=== PATIENT | female | born 1955 | race Caucasian/White ===

== ENCOUNTER 2021-04-06 20:54 | Emergency (ER) | payer MEDICARE, SELFPAY ==
[2021-04-06 21:33] VITALS: BP 192/102; PULSE 65; RESP 16; TEMP 36.9; O2SAT 98; BMI 21.6
[2021-04-06 21:53] LABS: MANUAL DIFF FLAG NO
[2021-04-06 21:57] LABS: Basophils Percent Auto 0.6 % (0-2); Eosinophils Absolute Auto 0.3 X10*3/uL (0.0-0.4); Eosinophils Percent Auto 6.3 % (0-4); Hematocrit 39.6 % (37.0-47.0); Hemoglobin 13.6 g/dl (12.0-16.0); Imm Gran Abs Auto 0.01 X10*3/uL (0.00-0.03); Imm Gran Pct Auto 0.2 % (0.0-0.4); Lymphocytes Absolute Auto 1.6 X10*3/uL (1.2-4.9); Lymphocytes Percent Auto 34.8 % (20-40); Mean Corpuscular HGB Conc 34.3 g/dl (31.0-35.0); Mean Corpuscular Hemoglobin 33.1 pg (27.0-33.0); Mean Corpuscular Volume 96.4 fL (80.0-98.0); Mean Platelet Volume 10.5 fL (9.4-12.3); Monocytes Absolute Auto 0.5 X10*3/uL (0.1-1.2); Monocytes Percent Auto 11.3 % (2-11); Neutrophils Absolute Auto 2.2 x10*3/uL (2.0-8.3); Neutrophils Percent Auto 46.8 % (45-73); Platelet Count 235 X10*3/uL (160-400); Red Blood Count 4.11 X10*6/uL (4.20-5.50); White Blood Count 4.6 X10*3/uL (4.8-10.8)
[2021-04-06 22:09] LABS: Anion Gap 14 (12-20); Blood Urea Nitrogen 16 mg/dL (9-16); Calcium 9.2 mg/dL (8.4-10.2); Carbon Dioxide 26 mmol/L (22-29); Chloride 105 mmol/L (96-108); Creatinine Clr Calc Pharmacy 62.8; Estimated Glomerular Filt Rate > 60; Glucose Random 104 mg/dL (60-115); Potassium 3.9 mmol/L (3.3-5.1); Sodium 141 mmol/L (135-145)
[2021-04-06 22:17] LABS: Troponin-I High Sensitivity < 3.5 ng/L (<3.5-17.0)
--- NOTE | 2021-04-07 00:45 | ED_ITS ---
HPI - General Adult General Chief complaint: General Medical Stated complaint: High blood pressure/Dizziness Time Seen by Provider: 04/07/21 00:25 Source: patient Mode of arrival: ambulatory Limitations: no limitations History of Present Illness HPI narrative: 65-year-old female who presents emergency department for evaluation of elevated blood pressure. The patient states that approximately 6 months ago she was seen by her PCP and had some slightly elevated systolic readings in the office. The PCP suggested that the patient start a blood pressure medication however the patient wanted to monitor her blood pressure at home. she states that she was checking her blood pressure once a week and her systolic readings were in the 130-140 range. She states that over the past 1-2 days she has been taking her blood pressure in her readings have been significantly higher. the patient states that her blood pressure readings were 160/120, 170/121 and 180/120. She states at this evening she did have a head ache and felt dizzy, she discuss this with her son who is an EMT/ voluntary fire control assistant and he advised her to go to the emergency department for evaluation. At the time of my evaluation, the patient has no complaints. She states that she exercises daily, she does use salt in her diet. She denied fever, chills, chest pain, shortness of breath, nausea, vomiting, weakness, Frequency , urgency or dysuria Related Data Previous Rx's Medication Instructions Recorded lisinopril 10 mg tablet 10 mg PO DAILY 30 Days #30 tab 04/07/21 Allergies Allergy/AdvReac Type Severity Reaction Status Date / Time No Known Allergies Allergy Verified 04/07/21 00:44 Review of Systems Review of Systems: Yes all other systems are reviewed and are negative [facility] Past Medical History [facility] Narrative: past medical history: None. Past surgical history: None. Social history: The patient drinks 2 glasses of wine per day, she denies tobacco use. She denies alcohol use. Medical History (Updated 04/07/21 @ 00:54 by Carlos Mitchell MD) Depression Hypothyroidism Osteoporosis Social History Social History Advance Directives: No Physical Exam Vital Signs: Vital Signs: Last Vital Signs Temp 98.5 F 04/06/21 21:33 Pulse 65 04/06/21 21:33 Resp 16 04/06/21 21:33 BP 192/102 H 04/06/21 21:33 Pulse Ox 98 04/06/21 21:33 BMI result Body Mass Index 21.6 Const: General: cooperative and no acute distress Orientation/consciousness: oriented to person and oriented to place Limitations: no limitations HENMT: Head: Yes normal to inspection, Yes normocephalic and Yes atraumatic Ears: external ears normal General nose exam: Normal external nose present Face and sinus: Yes normal facial exam Mouth: Normal oral and palatal mucosa present Throat: Yes posterior oropharynx normal Eyes: General: appearance normal, both eyes and all related structures Pupils: Equal, round and reactive pupils present Neck: Neck: Yes normal visual inspection, Yes no lymphadenopathy, Yes trachea midline and Yes supple Chest: Chest palpation & inspection: normal inspection of the chest and normal palpation of entire chest wall Resp: Effort & Inspection: normal respiratory effort and able to speak in complete sentences Auscultation: clear to auscultation bilaterally Cardio: Rate: regular rate Rhythm: regular rhythm Heart sounds: S1 normal heart sound present, S2 normal heart sound present and no murmurs GI: Inspection: Yes normal to inspection Palpation (GI): Soft to palpation, nontender and no guarding Auscultation: normal bowel sounds : General: Yes no CVA tenderness Back/Spine/Pelvis: Back: no CVA tenderness Skin: General skin exam: no rashes or lesions noted Neuro: General: oriented to person and oriented to place Cranial nerves: Yes CN's II-XII intact bilaterally and Yes Equal, round and reactive pupils present Cognition (Neuro): normal cognition Motor exam (neuro): 5/5 motor strength present throughout Extrem: General: Yes normal to inspection Psych: Appearance: grossly normal Speech and movement: Normal speech and movement present Affect: normal affect Attitude: cooperative Thought process: Normal thought process present Thought content: Normal thought content present Course Course Course Narrative: 65-year-old female who presents emergency department for evaluation elevated blood pressures over the last 1-2 days. Prior to coming to the emergency department she did have headache and dizziness with an elevated blood pressure of 180/120. Patient's headache and dizziness since resolved. Her initial vital signs did reveal an elevated blood pressure of 192/102. Patient's physical examination was unremarkable. Laboratory evaluation revealed a normal CBC and a normal comprehensive metabolic panel. She had a undetectable high sensitivity troponin I. I did discuss the management of hypertension with the patient. At this time I do think that the patient would benefit from being started on an antihypertensive medication and the patient agrees. Patient was started on lisinopril 10 mg once a day. She was advised to check her blood pressure on Friday, Friday and Friday mornings for the next 2-3 weeks. She is to make a follow-up appointment with her PCP for re-evaluation and to return to emergency department if her symptoms get worse or she develops any new symptoms that are concerning to her. Medical Decision Making Lab Data Result diagrams: 04/06/21 21:48 04/06/21 21:48 Labs: Lab Results 04/06/21 04/06/21 04/06/21 Range/Units 21:48 21:48 21:48 WBC 4.6 L (4.8-10.8) X10*3/uL RBC 4.11 L (4.20-5.50) X10*6/uL Hgb 13.6 (12.0-16.0) g/dl Hct 39.6 (37.0-47.0) % MCV 96.4 (80.0-98.0) fL MCH 33.1 H (27.0-33.0) pg MCHC 34.3 (31.0-35.0) g/dl RDW 12.0 (11.0-16.0) % Plt Count 235 (160-400) X10*3/uL MPV 10.5 (9.4-12.3) fL Immature Gran % (Auto) 0.2 (0.0-0.4) % Neut % (Auto) 46.8 (45-73) % Lymph % (Auto) 34.8 (20-40) % [place] % (Auto) 11.3 H (2-11) % Eos % (Auto) 6.3 H (0-4) % Baso % (Auto) 0.6 (0-2) % Lymph # (Auto) 1.6 (1.2-4.9) X10*3/uL [place] # (Auto) 0.5 (0.1-1.2) X10*3/uL Eos # (Auto) 0.3 (0.0-0.4) X10*3/uL Baso # (Auto) 0.0 (0.0-0.2) X10*3/uL Abs Immat Gran (auto) 0.01 (0.00-0.03) X10*3/uL Absolute Neuts (auto) 2.2 (2.0-8.3) x10*3/uL Absolute Nucleated RBC 0.000 (0.0-0.012) X10*3/uL Nucleated RBC % (auto) 0.0 (0.0-0.2) /100WBC Sodium 141 (135-145) mmol/L Potassium 3.9 (3.3-5.1) mmol/L Chloride 105 (96-108) mmol/L Carbon Dioxide 26 (22-29) mmol/L Anion Gap 14 (12-20) BUN 16 (9-16) mg/dL Creatinine 0.77 (0.5-1.4) mg/dL Estim Creat Clear Calc 62.8 Estimated GFR > 60 Random Glucose 104 (60-115) mg/dL Calcium 9.2 (8.4-10.2) mg/dL Troponin I High Sens < 3.5 (<3.5-17.0) ng/L Discharge Plan Discharge Clinical Impression: Hypertension Patient Disposition: Home, Self-Care Additional Instructions: your initial blood pressure today was 192/102. Your examination was normal. Your laboratory evaluation included a CBC, CMP and high sensitive troponin. L of the steps were normal. At this time, I do think that she would benefit from being on a blood pressure medicine therefore I am starting you on lisinopril 10 mg pills, take 1 pill once a day. The reason to check your blood pressure at home is to give your doctor an idea of what your blood pressure does when you are not in the doctor's office. Take your blood pressure in the morning, Friday , Friday and Fridays and then write down these readings to discuss them with your doctor at your next visit. When you get started on medications, it often takes 1-2 months or longer to get your blood pressure under control. Lowering your blood pressure to rapidly or getting your blood pressure too low quickly can make you feel bad. Please return to the emergency department if you develops concerning symptoms such as severe headache, chest pain, shortness of breath, difficulty walking secondary to shortness of breath, numbness, weakness, difficulty talking. Take Tylenol (acetaminophen) 500 mg pills, 2 pills every 4 to 6 hours as needed for pain. Follow-up with your doctor in 2 weeks to discuss your blood pressure readings. Please return to the emergency department if your symptoms get worse or if you develop any new symptoms that are concerning to you. Prescriptions: New lisinopril 10 mg tablet 10 mg PO DAILY 30 Days Qty: 30 RF: 0
[2021-04-07 00:49] VITALS: BP 195/103; PULSE 61
[2021-04-07] MEDS: lisinopriL 10 MG TABLET PO (00:49)
[2021-04-07 01:06] VITALS: BP 169/99; PULSE 56; RESP 18; O2SAT 99
== END 2021-04-07 01:08 | disposition home or self-care (01) ==
PROVIDERS: Emergency Provider Emergency Medicine Emergency Medical Services
DX: I10 Essential (primary) hypertension (principal)
CPT/HCPCS: 36415; 80048; 84484; 85025; 99283; 99284

== ENCOUNTER 2021-08-13 18:01 | Emergency (ER) | payer MEDICARE, SELFPAY ==
--- NOTE | ~2021-08-13 | CT_ITS ---
EXAMINATION: CT ANGIOGRAM HEAD CT ANGIOGRAM NECK CLINICAL INFORMATION: Recurrent right-sided hemianopia. COMPARISON: None available TECHNIQUE: Initial noncontrast upsetting machine operator imaging of the head and neck was performed. Noncontrast head CT was also performed. Test bolus sequences followed by intravenous administration 70 mL of Omnipaque 350. Helical imaging was performed in the axial plane from the aortic arch to the skull vertex. Delayed postcontrast imaging of the head was also performed. The data was processed at the mineral technologist's workstation for generation of MIP sequences. Angled MIPs and volume rendered reformatted images were also generated at an offline 3D workstation. Stenoses are assessed in accordance with NASCET criteria unless otherwise indicated. This CT examination was performed using dose optimization techniques as appropriate, variously including the following: *Automated exposure control. *Adjustment of mA and/or kV according to patient size (this includes techniques or standardized protocols for targeted exams where dose is matched to indication/reason for exam; i.e. extremities or head). *Use of iterative reconstruction technique. DLP: 2152 mGy-cm FINDINGS: CT Head: There is no evidence of acute intracranial hemorrhage or edematous territorial infarction. Basal ganglia mineralization. A few foci of hypoattenuation in the periventricular and deep white matter are consistent with mild microangiopathy. 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 No additional loss of lofton-white matter differentiation. Proportional prominence of the ventricles and sulcal spaces. No evidence for obstructive hydrocephalus. No abnormal mass effect or midline shift. No extra-axial fluid collections. No pathologic intra-axial enhancement or regional oligemia. No acute soft tissue or osseous abnormalities. Moderate mucosal thickening of the paranasal sinuses. The mastoid air cells and middle ear cavities are clear. Mild degenerative arthropathy of the temporomandibular joints. No demonstrated abnormalities of the orbits. CT Neck: The thyroid gland and remaining cervical soft tissues are within normal limits. Straightening of the normal cervical lordosis. Moderate degenerative disc disease at C4-C5 and C5-C6 with disc/osteophyte complex formation. Facet and uncovertebral joint arthropathy leads to osseous encroachment on the neural foramina at C4-C5. CT Upper Chest: The visualized lung apices and upper mediastinum are within normal limits. Neck CTA: Aortic Arch: Normal contour and caliber with mild calcific atherosclerotic disease. Classic 3 vessel branching pattern of the aortic arch. Great Vessel Origins: No significant stenosis of the branch origins. Right Common Carotid Artery: No focal stenosis or occlusion. Cervical Right Internal Carotid Artery: Mixed lipid rich and calcific atherosclerotic disease of the carotid bulb and proximal internal carotid artery causes irregular 75% stenosis of the origin of the ICA. Left Common Carotid Artery: No focal stenosis or occlusion. Cervical Left Internal Carotid Artery: Mixed lipid rich and calcific atherosclerotic disease of the carotid bulb and proximal internal carotid artery causes 50% stenosis of the origin of the ICA with positive remodeling. Cervical Right Vertebral Artery: Co-dominant. No focal stenosis or occlusion. Undulation of the umaña of the V2 and V3 segments as may be seen with underlying fibromuscular dysplasia. Cervical Left Vertebral Artery: Co-dominant. No focal stenosis or occlusion. Undulation of the umaña of the V2 and V3 segments as may be seen with underlying fibromuscular dysplasia. Brain CTA: Intracranial Internal Carotid Arteries: Calcific atherosclerotic disease of the intracranial internal carotid arteries without occlusion or flow-limiting stenosis. This exam was not specifically tailored to evaluate the ophthalmic arteries. However, the proximal left ophthalmic artery appears to opacify to a greater degree than the right ophthalmic artery. Right Anterior Cerebral Artery: Normal A1 segment. Normal opacification of the distal PURA segments. Left Anterior Cerebral Artery: Normal A1 segment. Normal opacification of the distal PURA segments. Anterior Communicating Artery: Normal. Right Middle Cerebral Artery: Normal M1 segment of the MCA without focal stenosis or occlusion. Normal arborization of the distal segments. Left Middle Cerebral Artery: Normal M1 segment of the MCA without focal stenosis or occlusion. Normal arborization of the distal segments. Right Vertebral Artery: Normal V4 segment. The posterior inferior cerebellar artery is not well opacified; however, there is no CT evidence of acute occlusion. Left Vertebral Artery: Normal V4 segment. The posterior inferior cerebellar artery is not well opacified; however, there is no CT evidence of acute occlusion. Basilar Artery: Normal without focal stenosis or occlusion. Normal appearance of the proximal superior cerebellar arteries. Right Posterior Cerebral Artery: Normal P1 segment. Normal opacification of the distal CLIENT SERVICE PROFESSIONAL segments. Left Posterior Cerebral Artery: Normal P1 segment. Normal opacification of the distal CLIENT SERVICE PROFESSIONAL segments. Normal opacification of the superior sagittal, straight, transverse, and sigmoid sinuses. CT/CT angio head neck IMPRESSION: 1. No evidence of acute intracranial hemorrhage or edematous territorial infarction. Mild underlying microangiopathy and generalized cerebral volume loss. 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 2. CTA of the head and neck without proximal occlusion. 3. Mixed lipid rich and calcific atherosclerotic disease causes 75% stenosis of the origin of the right ICA and 50% stenosis of the origin of the left ICA. 4. Moderate calcific atherosclerotic disease of the intracranial internal carotid arteries bilaterally without flow-limiting stenosis or occlusion. This exam was not specifically tailored to evaluate the ophthalmic arteries. However, within the limitations of this exam, the proximal segments of the left ophthalmic artery opacifies greater than the right. Opacification of the intraorbital segments of the ophthalmic arteries is maintained bilaterally. 5. Undulating appearance of the umaña of the V2 and V3 segments bilaterally as may be seen in the setting of underlying fibromuscular dysplasia.
[2021-08-13 18:58] VITALS: BP 131/83; PULSE 78; RESP 16; TEMP 36.9; O2SAT 98; BMI 22.2
--- NOTE | 2021-08-13 19:35 | ED_ITS ---
HPI - General Adult General Chief complaint: General Medical Stated complaint: eye doctor sent pt from office for carotid artery Time Seen by Provider: 08/13/21 19:35 Source: patient Mode of arrival: ambulatory Limitations: no limitations History of Present Illness HPI narrative: Patient sent by financial systems analyst for intermittent right eye visual loss. Patient history of hypertension in May notice all of a sudden she could not see upper part of the field from the right eye which lasted for 2-3 minutes patient did not go to any hospital got better no other focal deficit no speech problem no motor weakness. Again 3 days ago patient noticed similar picture of loss of vision specially in the right eye and upper quadrant with lasted for 2 -3 m. This time also there was no associated symptoms. Patient does have this sharp pain comes from the back and goes to the right time with and tingling sensation which is also in few minutes off and on for last few months weakness denies any chest pain no palpitation or shortness of breath Related Data Previous Rx's Medication Instructions Recorded lisinopril 10 mg tablet 10 mg PO DAILY 30 Days #30 tab 04/07/21 Allergies Allergy/AdvReac Type Severity Reaction Status Date / Time No Known Allergies Allergy Verified 08/13/21 18:58 Review of Systems Review of Systems: Yes all other systems are reviewed and are negative PMFSH Past Medical History Medical History Depression Hypothyroidism Osteoporosis Social History Social History Advance Directives: No Advance Directives Information Provided: Yes Physical Exam ED Vital Signs: Vital Signs - 24 hr 08/13/21 18:58 Temperature 98.5 F Pulse Rate 78 Respiratory Rate 16 Blood Pressure 131/83 Pulse Oximetry 98 BMI result Body Mass Index 22.2 Appearance: Alert. Oriented X3. No acute distress. Eyes: PERRLA, No Nystagmus EOMI ENT: Pharynx normal. Oral Mucosa moist Neck: Normal inspection. Neck supple. CVS: Normal heart rate and rhythm. Pulses normal. Respiratory: No respiratory distress. Equal air entry bilateral, no whe ezing/rales/rhonchi Abdomen: Soft and nontender. Bowel sounds are present, no mass palpable, no CVA tenderness Skin: Skin warm and dry. Normal skin color. Normal skin turgor. Extremities: No lower extremity edema. No calf tenderness Neuro: Oriented X 3. No motor deficit. No sensory deficit.No cerebellar signs , cranial nerves II-XII intact Medical Decision Making MDM Narrative Medical decision making narrative: Patient with transient visual loss in upper quadrant with no other focal deficit workup at this time is negative showed 75% left carotid artery blockage and 50% on the right patient referred to vascular surgeon and PCP advised to take baby aspirin for now Lab Data Lab results reviewed: Yes I reviewed the patient's lab results. Result diagrams: 08/13/21 20:50 08/13/21 20:50 Labs: Lab Results 08/13/21 08/13/21 08/13/21 Range/Units 20:50 20:50 20:50 WBC 4.1 L (4.8-10.8) X10*3/uL RBC 4.31 (4.20-5.50) X10*6/uL Hgb 14.2 (12.0-16.0) g/dl Hct 41.3 (37.0-47.0) % MCV 95.8 (80.0-98.0) fL MCH 32.9 (27.0-33.0) pg MCHC 34.4 (31.0-35.0) g/dl RDW 12.4 (11.0-16.0) % Plt Count 204 (160-400) X10*3/uL MPV 10.8 (9.4-12.3) fL Immature Gran % (Auto) 0.2 (0.0-0.4) % Neut % (Auto) 71.2 (45-73) % Lymph % (Auto) 16.5 L (20-40) % [place] % (Auto) 10.4 (2-11) % Eos % (Auto) 1.2 (0-4) % Baso % (Auto) 0.5 (0-2) % Lymph # (Auto) 0.7 L (1.2-4.9) X10*3/uL [place] # (Auto) 0.4 (0.1-1.2) X10*3/uL Eos # (Auto) 0.1 (0.0-0.4) X10*3/uL Baso # (Auto) 0.0 (0.0-0.2) X10*3/uL Abs Immat Gran (auto) 0.01 (0.00-0.03) X10*3/uL Absolute Neuts (auto) 2.9 (2.0-8.3) x10*3/uL Absolute Nucleated RBC 0.000 (0.0-0.012) X10*3/uL Nucleated RBC % (auto) 0.0 (0.0-0.2) /100WBC ESR (0-20) MM/HR PT 12.0 (9.9-13.0) SEC INR 1.1 (0.9-1.1) Sodium 138 (135-145) mmol/L Potassium 4.3 (3.3-5.1) mmol/L Chloride 103 (96-108) mmol/L Carbon Dioxide 28 (22-29) mmol/L Anion Gap 11 L (12-20) BUN 13 (9-16) mg/dL Creatinine 0.74 (0.5-1.4) mg/dL Estim Creat Clear Calc 62.6 Estimated GFR > 60 Random Glucose 99 (60-115) mg/dL Calcium 9.1 (8.4-10.2) mg/dL 08/13/21 Range/Units 20:50 WBC (4.8-10.8) X10*3/uL RBC (4.20-5.50) X10*6/uL Hgb (12.0-16.0) g/dl Hct (37.0-47.0) % MCV (80.0-98.0) fL MCH (27.0-33.0) pg MCHC (31.0-35.0) g/dl RDW (11.0-16.0) % Plt Count (160-400) X10*3/uL MPV (9.4-12.3) fL Immature Gran % (Auto) (0.0-0.4) % Neut % (Auto) (45-73) % Lymph % (Auto) (20-40) % [place] % (Auto) (2-11) % Eos % (Auto) (0-4) % Baso % (Auto) (0-2) % Lymph # (Auto) (1.2-4.9) X10*3/uL [place] # (Auto) (0.1-1.2) X10*3/uL Eos # (Auto) (0.0-0.4) X10*3/uL Baso # (Auto) (0.0-0.2) X10*3/uL Abs Immat Gran (auto) (0.00-0.03) X10*3/uL Absolute Neuts (auto) (2.0-8.3) x10*3/uL Absolute Nucleated RBC (0.0-0.012) X10*3/uL Nucleated RBC % (auto) (0.0-0.2) /100WBC ESR 5 (0-20) MM/HR PT (9.9-13.0) SEC INR (0.9-1.1) Sodium (135-145) mmol/L Potassium (3.3-5.1) mmol/L Chloride (96-108) mmol/L Carbon Dioxide (22-29) mmol/L Anion Gap (12-20) BUN (9-16) mg/dL Creatinine (0.5-1.4) mg/dL Estim Creat Clear Calc Estimated GFR Random Glucose (60-115) mg/dL Calcium (8.4-10.2) mg/dL ECG Data Attestation: I personally reviewed and interpreted this ECG as follows: Interpretation: Normal sinus rhythm nonspecific ST-T changes heart rate 62 beats per minute normal intervals normal axis no acute ST-T changes no acute ischemia Discharge Plan Discharge Clinical Impression: Vision disorder Patient Disposition: Home, Self-Care Instructions: Blurred Vision (ED) Additional Instructions: Etiology of the vision problem is not very clear CT scan is negative for any acute stroke Follow-up with vascular surgeon for the carotid artery stenosis Take baby aspirin daily Prescriptions: No Action lisinopril 10 mg tablet 10 mg PO DAILY 30 Days Qty: 30 0RF Referrals: Marcus Boogie MD [Physician] - 1 week Interventions: ED Discharge Assessment Last Done: 08/14/21 00:03 Discharge Date/Time: 08/14/21 00:04
--- NOTE | 2021-08-13 19:36 | ECG_ITS ---
Test Reason : eye artery issue Blood Pressure : / mmHG Vent. Rate : 062 BPM Atrial Rate : 062 BPM P-R Int : 156 ms QRS Dur : 094 ms QT Int : 446 ms P-R-T Axes : 069 038 109 degrees QTc Int : 452 ms Normal sinus rhythm Nonspecific ST abnormality Abnormal QRS-T angle, consider primary T wave abnormality Abnormal ECG No previous ECGs available Referred By: Augei Paez Electronically Signed By:SABA GOULD MD
[2021-08-13 20:55] LABS: MANUAL DIFF FLAG NO
[2021-08-13 20:57] LABS: Basophils Percent Auto 0.5 % (0-2); Eosinophils Absolute Auto 0.1 X10*3/uL (0.0-0.4); Eosinophils Percent Auto 1.2 % (0-4); Hematocrit 41.3 % (37.0-47.0); Hemoglobin 14.2 g/dl (12.0-16.0); Imm Gran Abs Auto 0.01 X10*3/uL (0.00-0.03); Imm Gran Pct Auto 0.2 % (0.0-0.4); Lymphocytes Absolute Auto 0.7 X10*3/uL (1.2-4.9); Lymphocytes Percent Auto 16.5 % (20-40); Mean Corpuscular HGB Conc 34.4 g/dl (31.0-35.0); Mean Corpuscular Hemoglobin 32.9 pg (27.0-33.0); Mean Corpuscular Volume 95.8 fL (80.0-98.0); Mean Platelet Volume 10.8 fL (9.4-12.3); Monocytes Absolute Auto 0.4 X10*3/uL (0.1-1.2); Monocytes Percent Auto 10.4 % (2-11); Neutrophils Absolute Auto 2.9 x10*3/uL (2.0-8.3); Neutrophils Percent Auto 71.2 % (45-73); Platelet Count 204 X10*3/uL (160-400); Red Blood Count 4.31 X10*6/uL (4.20-5.50); Red Cell Distribution Width 12.4 % (11.0-16.0); White Blood Count 4.1 X10*3/uL (4.8-10.8)
[2021-08-13 21:02] LABS: INTERNATIONAL NORM RATIO 1.1 (0.9-1.1)
[2021-08-13 21:27] LABS: Anion Gap 11 (12-20); Blood Urea Nitrogen 13 mg/dL (9-16); Calcium 9.1 mg/dL (8.4-10.2); Carbon Dioxide 28 mmol/L (22-29); Chloride 103 mmol/L (96-108); Creatinine Clr Calc Pharmacy 62.6; Estimated Glomerular Filt Rate > 60; Glucose Random 99 mg/dL (60-115); Potassium 4.3 mmol/L (3.3-5.1); Sodium 138 mmol/L (135-145)
[2021-08-13] MEDS: iohexoL 350 MG/ML 100 ML INFUS..BTL IV (22:40)
[2021-08-14 00:17] LABS: Erythrocyte Sedimentation Rate 5 MM/HR (0-20)
== END 2021-08-14 00:04 | disposition home or self-care (01) ==
PROVIDERS: Emergency Provider Internal Medicine; PCP Internal Medicine
DX: H53.47 Heteronymous bilateral field defects (principal); H53.9 Unspecified visual disturbance; I10 Essential (primary) hypertension; R10.11 Right upper quadrant pain; R51.9 Headache, unspecified; Z79.899 Other long term (current) drug therapy
CPT/HCPCS: 36415; 70496; 70498; 80048; 85025; 85610; 85652; 93005; 99283; 99284; Q9967